=== PATIENT | male | born 1945 | race Hispanic/Latino ===

== ENCOUNTER 2019-01-18 01:50 | Emergency (ER) | payer OTHER, MEDICARE ==
[~2019-01-18] VITALS: Ht 185.4 cm; Wt 176.0 kg
[~2019-01-18 01:50] MED LIST: ALBUTEROL SULF8.5 GM INH; BENADRYL25 M1 PO; CEFDINIR300 MG PO; DITROPAN5 MG PO; FIBER LAXATIVE625 MG PO; LEVAQUIN500 MG PO; MIRALAX17 GM PO; MULTIVITAMIN; TYLENOL325 MG PO; Z.0.ALDACTONE25 MG PO; Z.0.CORDARONE200 MG PO; Z.0.COREG6.25 MG PO; Z.0.GLUCOPHAGE500 MG PO; Z.0.JANUVIA100 MG PO; Z.0.LASIX40 MG PO; Z.0.PROTONIX40 MG PO; [UNRECOGNIZED DRUG - OTHER] PO
[2019-01-18] MEDS ORDERED: SILVER NITRATE SWABS ONE (01:57)
[2019-01-18] MEDS ORDERED: SILVER NITRATE SWABS TOP ONE (02:00)
--- NOTE | 2019-01-18 02:10 | NUR ---
PTS R FOOT DRESSED WITH SURGICEL AND JEM WRAP
== END 2019-01-18 02:27 | disposition home or self-care (01) ==
LOC: ER 01:50
DX: I83.891 Varicose veins of right lower extremity with other complications (principal); I10 Essential (primary) hypertension; E11.9 Type 2 diabetes mellitus without complications; E66.01 Morbid (severe) obesity due to excess calories
CPT/HCPCS: 99283

== ENCOUNTER → 2019-02-18 | Outpatient (CLI) | payer MEDICARE, OTHER ==
--- NOTE | 2019-02-18 13:04 | Diagnostic Imaging Report ---
Exam: Left fifth digit, 3 views History: Pain status post trauma Comparison: None. Findings: No acute, displaced fracture or dislocation. Joint spaces are well-maintained. No soft tissue defect or radiopaque soft tissue foreign body. Impression: 1. No acute osseous abnormality. Signed by: Dr. Sy Anton M.D. on 02/18/2019 1:01 PM
--- NOTE | 2019-02-18 13:05 | Diagnostic Imaging Report ---
Exam: Nasal bones 3 views History: Pain, fall Comparison: None. Findings: No acute, displaced fracture. The paranasal sinuses are well aerated. Soft tissues unremarkable. Impression: No displaced nasal bone fracture. Signed by: Dr. Sy Anton M.D. on 02/18/2019 1:02 PM
== END ==
LOC: RAD 11:59
DX: M79.645 Pain in left finger(s) (principal); Z91.81 History of falling
CPT/HCPCS: 70160

== ENCOUNTER 2020-07-26 15:12 | Inpatient (IN) | payer MEDICARE, OTHER ==
[~2020-07-26] VITALS: Ht 182.9 cm; Wt 156.5 kg
[2020-07-26 18:26] LABS: BASOPHILS % 0.4 % (0.0-1.0); EOSINOPHILS # (AUTO) 0.2 (0.0-0.4); EOSINOPHILS % 1.4 % (0.0-6.0); HEMATOCRIT 31.4 % (38.2-49.6); HEMOGLOBIN 9.8 g/dL (14.0-18.0); LYMPHOCYTES # (AUTO) 0.7 (1.0-3.2); LYMPHOCYTES % 6.7 % (18.0-39.1); MEAN CORPUSCULAR HEMOGLOBIN 30.8 pg (28-32); MEAN CORPUSCULAR HGB CONC 31.2 g/dL (31-35); MEAN CORPUSCULAR VOLUME 98.7 fL (81-99); MONOCYTES # (AUTO) 1.2 (0.2-0.8); MONOCYTES % 10.6 % (4.4-11.3); NEUTROPHILS # (AUTO) 8.9 (2.1-6.9); NEUTROPHILS % 80.4 % (38.7-80.0); PLATELET COUNT 235 x10e3/uL (140-360); RED BLOOD COUNT 3.18 x10e6/uL (4.3-5.7); RED CELL DISTRIBUTION WIDTH 13.8 % (11.7-14.4)
[2020-07-26 18:42] LABS: ALBUMIN 2.6 g/dL (3.5-5.0); ALBUMIN/GLOBULIN RATIO 0.5 (0.8-2.0); ANION GAP 13.7 mmol/L (8-16); CALCIUM 8.6 mg/dL (8.4-10.2); CREATININE, SERUM 1.97 mg/dL (0.72-1.25); POTASSIUM 4.7 mmol/L (3.5-5.1)
[2020-07-26] MEDS ORDERED: VANCOMYCIN 1GM/NS 250 ML 250 ML IV STA (19:45)
[2020-07-26] MEDS ORDERED: VANCOMYCIN 1GM/NS 250 ML 250 ML IV ONE (19:45)
[2020-07-26] MEDS ORDERED: CEFEPIME 1GM/NS 0.9% 50 ML 50 ML IV STA (19:45)
[2020-07-26 21:30] VITALS: BP 130/77
[2020-07-26 22:00] VITALS: BP 130/77
[2020-07-26] MEDS ORDERED: SODIUM CHLORIDE 0.9% 250ML 250 ML ONE (22:16)
[2020-07-27] VITALS (8 sets, daily range): BP systolic 100–121; BP diastolic 55–73
[2020-07-27 06:20] LABS: BASOPHILS % 0.4 % (0.0-1.0); EOSINOPHILS # (AUTO) 0.5 (0.0-0.4); EOSINOPHILS % 5.5 % (0.0-6.0); HEMATOCRIT 30.5 % (38.2-49.6); HEMOGLOBIN 9.5 g/dL (14.0-18.0); LYMPHOCYTES # (AUTO) 0.6 (1.0-3.2); LYMPHOCYTES % 7.4 % (18.0-39.1); MEAN CORPUSCULAR HEMOGLOBIN 31.4 pg (28-32); MEAN CORPUSCULAR HGB CONC 31.1 g/dL (31-35); MEAN CORPUSCULAR VOLUME 100.7 fL (81-99); MONOCYTES % 12.5 % (4.4-11.3); NEUTROPHILS # (AUTO) 6.1 (2.1-6.9); NEUTROPHILS % 73.8 % (38.7-80.0); PLATELET COUNT 195 x10e3/uL (140-360); RED BLOOD COUNT 3.03 x10e6/uL (4.3-5.7); RED CELL DISTRIBUTION WIDTH 13.8 % (11.7-14.4)
[2020-07-27] MEDS ORDERED: CEFEPIME HCL 1 GM VIAL IV SCH (09:30)
[2020-07-27] MEDS ORDERED: POLYETHYLENE GLYCOL 3350 17 GM PACK PO PRN (09:30)
[2020-07-27] MEDS ORDERED: DIPHENHYDRAMINE HCL 25 MG CAP PO PRN (09:30)
[2020-07-27] MEDS ORDERED: DEXTROSE 50% SYRINGE 50 ML IV PRN (09:30)
[2020-07-27] MEDS ORDERED: ALBUTEROL SULFATE HFA 8GM INHALATION AEROSOL INH PRN (09:30)
[2020-07-27] MEDS ORDERED: ACETAMINOPHEN 325 MG TAB PO PRN (09:30)
[2020-07-27] MEDS: INSULIN REGULAR, HUMAN 100 UNIT/1 ML 3ML VIAL SQ SCH ×3 (11:30→20:30)
[2020-07-27] MEDS: CEFEPIME 1GM/NS 0.9% 50 ML 50 ML IV SCH ×2 (11:50→20:29)
[2020-07-27] MEDS ORDERED: CARVEDILOL 6.25 MG PO SCH (17:00)
[2020-07-27] MEDS: CARVEDILOL 3.125 MG TAB PO SCH (17:00)
[2020-07-27] MEDS: METFORMIN HCL 500 MG TAB PO SCH (17:06)
[2020-07-27] MEDS: OXYBUTYNIN CHLORIDE 5 MG TAB PO SCH (17:06)
[2020-07-27] MEDS: BALSAM PERU/CASTOR OIL 60 GM OINT...G. TP SCH (17:06)
[2020-07-27] MEDS: VANCOMYCIN 1GM/NS 250 ML 250 ML IV SCH (18:00)
[2020-07-28] VITALS (8 sets, daily range): BP systolic 107–128; BP diastolic 53–67
[2020-07-28] MEDS: INSULIN REGULAR, HUMAN 100 UNIT/1 ML 3ML VIAL SQ SCH ×4 (07:30→20:49)
[2020-07-28] MEDS: CALCIUM POLYCARBOPHIL 625 MG TAB PO SCH (09:00)
[2020-07-28] MEDS: CEFEPIME 1GM/NS 0.9% 50 ML 50 ML IV SCH ×2 (09:00→21:04)
[2020-07-28] MEDS ORDERED: CALCIUM POLYCARBOPHIL 625 MG TAB PO SCH (09:00)
[2020-07-28] MEDS: FUROSEMIDE 40 MG TAB PO SCH (09:01)
[2020-07-28] MEDS: OXYBUTYNIN CHLORIDE 5 MG TAB PO SCH ×2 (09:01→16:03)
[2020-07-28] MEDS: CARVEDILOL 3.125 MG TAB PO SCH ×2 (09:01→16:03)
[2020-07-28] MEDS: METFORMIN HCL 500 MG TAB PO SCH ×2 (09:01→16:03)
[2020-07-28] MEDS: PANTOPRAZOLE SOD 40 MG TABEC PO SCH (09:02)
[2020-07-28] MEDS: BALSAM PERU/CASTOR OIL 60 GM OINT...G. TP SCH (09:02)
[2020-07-28] MEDS: AMIODARONE HCL 200 MG TAB PO SCH (09:02)
[2020-07-28 16:15] LABS: BILIRUBIN,URINE NEGATIVE (NEGATIVE); CLARITY,URINE HAZY (CLEAR); COLOR,URINE YELLOW (YELLOW); KETONES,URINE NEGATIVE (NEGATIVE); LEUKOCYTE ESTERASE ,URINE MODERATE (NEGATIVE); NITRITE,URINE NEGATIVE (NEGATIVE); PROTEIN,URINE DIPSTICK NEGATIVE (NEGATIVE); URINE UROBILINOGEN 0.2 mg/dL (0.2 - 1)
[2020-07-28 16:21] LABS: BACTERIA,URINE MODERATE /HPF; EPITHELIAL CELLS,URINE RARE /LPF; RBC,URINE 0-5 /HPF (0-5); WBC,URINE (MAN) 21-50 /HPF (0-5)
[2020-07-28] MEDS: VANCOMYCIN 1GM/NS 250 ML 250 ML IV SCH (17:18)
[2020-07-29] VITALS (8 sets, daily range): BP systolic 109–129; BP diastolic 63–79
[2020-07-29] MEDS: BALSAM PERU/CASTOR OIL 60 GM OINT...G. TP SCH (05:42)
[2020-07-29] MEDS: INSULIN REGULAR, HUMAN 100 UNIT/1 ML 3ML VIAL SQ SCH ×4 (07:30→21:00)
[2020-07-29] MEDS: OXYBUTYNIN CHLORIDE 5 MG TAB PO SCH ×2 (08:43→16:06)
[2020-07-29] MEDS: CALCIUM POLYCARBOPHIL 625 MG TAB PO SCH (08:43)
[2020-07-29] MEDS: CARVEDILOL 3.125 MG TAB PO SCH ×2 (08:43→16:06)
[2020-07-29] MEDS: AMIODARONE HCL 200 MG TAB PO SCH (08:43)
[2020-07-29] MEDS: FUROSEMIDE 40 MG TAB PO SCH (08:44)
[2020-07-29] MEDS: METFORMIN HCL 500 MG TAB PO SCH ×2 (08:44→16:06)
[2020-07-29] MEDS: CEFEPIME 1GM/NS 0.9% 50 ML 50 ML IV SCH ×2 (08:44→20:30)
[2020-07-29] MEDS: PANTOPRAZOLE SOD 40 MG TABEC PO SCH (08:44)
[2020-07-29] MEDS: VANCOMYCIN 1GM/NS 250 ML 250 ML IV SCH (17:51)
[2020-07-30 01:35] VITALS: BP 100/83
[2020-07-30 05:27] VITALS: BP 134/68
[2020-07-30] MEDS: INSULIN REGULAR, HUMAN 100 UNIT/1 ML 3ML VIAL SQ SCH ×2 (07:30→11:30)
[2020-07-30 08:50] VITALS: BP 123/59
[2020-07-30 09:04] VITALS: BP 123/59
[2020-07-30] MEDS: METFORMIN HCL 500 MG TAB PO SCH (09:07)
[2020-07-30] MEDS: FUROSEMIDE 40 MG TAB PO SCH (09:08)
[2020-07-30] MEDS: CARVEDILOL 3.125 MG TAB PO SCH (09:08)
[2020-07-30] MEDS: OXYBUTYNIN CHLORIDE 5 MG TAB PO SCH (09:08)
[2020-07-30] MEDS: AMIODARONE HCL 200 MG TAB PO SCH (09:08)
[2020-07-30] MEDS: CEFEPIME 1GM/NS 0.9% 50 ML 50 ML IV SCH (09:08)
[2020-07-30] MEDS: CALCIUM POLYCARBOPHIL 625 MG TAB PO SCH (09:08)
[2020-07-30] MEDS: PANTOPRAZOLE SOD 40 MG TABEC PO SCH (09:08)
[2020-07-30] MEDS: BALSAM PERU/CASTOR OIL 60 GM OINT...G. TP SCH (09:09)
[2020-07-30 13:17] VITALS: BP 111/62
[2020-07-30 16:38] VITALS: BP 148/79
== END 2020-07-30 17:00 | DRG 602 ==
LOC: ER 16:55 → ERHOLD 20:42 → MED/SURG3 21:32 → OBSVTOIN 07-28 15:02
DX: L03.115 Cellulitis of right lower limb (principal); N18.6 End stage renal disease; J96.10 Chronic respiratory failure, unspecified whether with hypoxia or hypercapnia; Z68.42 Body mass index [BMI] 45.0-49.9, adult; I13.2 Hypertensive heart and chronic kidney disease with heart failure and with stage 5 chronic kidney disease, or end stage renal disease; I50.22 Chronic systolic (congestive) heart failure; Z20.828 Contact with and (suspected) exposure to other viral communicable diseases; L03.116 Cellulitis of left lower limb; E11.9 Type 2 diabetes mellitus without complications; E66.01 Morbid (severe) obesity due to excess calories; Z99.2 Dependence on renal dialysis; E11.22 Type 2 diabetes mellitus with diabetic chronic kidney disease
CPT/HCPCS: 36415; 71045; 80053; 80202; 81001; 82948; 83605; 85025; 87040; 87086; 93005; 93970; 96372; 97139; 99251; 99284; G0378; J0692; J1817; J3370; J7050; U0002

== ENCOUNTER 2022-12-29 13:28 | Outpatient (RCR) | payer MEDICARE, OTHER ==
[~2022-12-29 13:28] MED LIST changes: +LIDOCAINE VISC 2% SOLN 15 ML UDC ONE; +MINERAL OIL/PETROLAT/GLYCERI 6OZ BTL ONE; +TRIAMCINOLONE ACET 0.1% CREAM 15 GM TUBE ONE
== END 2022-12-31 ==
LOC: WCC 13:28
PROVIDERS: ATTEND Family Medicine Adult Medicine
DX: I87.312 Chronic venous hypertension (idiopathic) with ulcer of left lower extremity (principal); L97.821 Non-pressure chronic ulcer of other part of left lower leg limited to breakdown of skin; Z16.12 Extended spectrum beta lactamase (ESBL) resistance; B95.7 Other staphylococcus as the cause of diseases classified elsewhere; B96.89 Other specified bacterial agents as the cause of diseases classified elsewhere; R60.0 Localized edema

== ENCOUNTER 2023-01-02 07:34 | Outpatient (RCR) | payer MEDICARE, OTHER ==
[~2023-01-02 07:34] MED LIST changes: -LIDOCAINE VISC 2% SOLN 15 ML UDC ONE; -MINERAL OIL/PETROLAT/GLYCERI 6OZ BTL ONE; -TRIAMCINOLONE ACET 0.1% CREAM 15 GM TUBE ONE
[2023-01-02] MEDS ORDERED: LIDOCAINE VISC 2% SOLN 15 ML UDC ONE (13:22)
[2023-01-02] MEDS ORDERED: MINERAL OIL/PETROLAT/GLYCERI 6OZ BTL ONE (13:22)
== END 2023-01-31 ==
LOC: WCC 07:34
PROVIDERS: ATTEND Family Medicine Adult Medicine
DX: I87.312 Chronic venous hypertension (idiopathic) with ulcer of left lower extremity (principal); L97.821 Non-pressure chronic ulcer of other part of left lower leg limited to breakdown of skin; I89.0 Lymphedema, not elsewhere classified; R60.0 Localized edema; B95.7 Other staphylococcus as the cause of diseases classified elsewhere; Z16.12 Extended spectrum beta lactamase (ESBL) resistance; B96.89 Other specified bacterial agents as the cause of diseases classified elsewhere

== ENCOUNTER 2024-04-06 21:38 | Inpatient (IN) | payer MEDICARE, OTHER ==
[~2024-04-06] VITALS: Ht 180.3 cm; Wt 151.5 kg
[2024-04-06 22:42] LABS: BASOPHILS % 0.3 % (0.0-1.0); EOSINOPHILS # (AUTO) 0.5 (0.0-0.4); EOSINOPHILS % 5.2 % (0.0-6.0); HEMATOCRIT 26.8 % (38.2-49.6); HEMOGLOBIN 8.5 g/dL (14.0-18.0); LYMPHOCYTES # (AUTO) 0.7 (1.0-3.2); LYMPHOCYTES % 7.4 % (18.0-39.1); MEAN CORPUSCULAR HEMOGLOBIN 31.8 pg (28-32); MEAN CORPUSCULAR HGB CONC 31.7 g/dL (31-35); MEAN CORPUSCULAR VOLUME 100.4 fL (81-99); MONOCYTES % 10.4 % (4.4-11.3); NEUTROPHILS # (AUTO) 7.3 (2.1-6.9); NEUTROPHILS % 76.4 % (38.7-80.0); PLATELET COUNT 173 x10e3/uL (140-360); RED BLOOD COUNT 2.67 x10e6/uL (4.3-5.7); RED CELL DISTRIBUTION WIDTH 14.2 % (11.7-14.4); WHITE BLOOD COUNT 9.59 x10e3/uL (4.8-10.8)
[2024-04-06] MEDS: SODIUM CHLORIDE 0.9% 1000ML 1,000 ML IV STA (22:53)
[2024-04-06 23:00] LABS: ALBUMIN/GLOBULIN RATIO 0.8 (0.8-2.0); ANION GAP 15.1 mmol/L (8-16); BILIRUBIN,TOTAL 0.5 mg/dL (0.2-1.2); CALCIUM 8.7 mg/dL (8.4-10.2); CREATININE, SERUM 2.46 mg/dL (0.72-1.25); POTASSIUM 4.1 mmol/L (3.5-5.1)
[2024-04-06 23:06] LABS: TROPONIN I 0.019 ng/mL (0-0.300)
[2024-04-07] VITALS (16 sets, daily range): BP systolic 97–123; BP diastolic 53–69; PULSE 57–135; RESP 16–20; TEMP 97.4–98.9; O2SAT 96–99
[2024-04-07] MEDS ORDERED: SODIUM CHLORIDE FLUSH 10 ML SYR INJ PRN (00:45)
[2024-04-07] MEDS: FUROSEMIDE INJ 10 MG/ML 4 ML VIAL IV SCH ×2 (02:34→12:00)
[2024-04-07] MEDS ORDERED: INFLUENZA VIRUS VAC SPLIT INJ 0.5 ML SYR IM SCH (03:33)
[2024-04-07] MEDS ORDERED: GLIMEPIRIDE1 MG PO (03:42)
[2024-04-07] MEDS ORDERED: ALLOPURINOL100 MG PO (03:44)
[2024-04-07] MEDS ORDERED: LIPITOR10 MG PO (03:47)
[2024-04-07] MEDS ORDERED: FERROUS SULFAT325 MG PO (03:48)
[2024-04-07] MEDS ORDERED: ZESTRIL2.5 MG PO (03:53)
[2024-04-07] MEDS ORDERED: METOPROLOL TARTRATE INJ 1 MG/ML VIAL IV STA (05:41)
[2024-04-07] MEDS ORDERED: DILTIAZEM HCL 5 MG/ML 5 ML VIAL IV STA (05:41)
[2024-04-07] MEDS ORDERED: DIGOXIN INJ 0.25 MG/ML 2 ML AMP ONE (05:51)
[2024-04-07] MEDS ORDERED: METOPROLOL TARTRATE INJ 1 MG/ML VIAL ONE (05:52)
[2024-04-07] MEDS: AMIODARONE HCL 200 MG TAB PO SCH ×2 (06:00→12:01)
[2024-04-07] MEDS: SODIUM CHLORIDE 0.9% 500ML 500 ML IV STA (06:08)
[2024-04-07] MEDS: METOPROLOL TARTRATE INJ 1 MG/ML VIAL IV ONE (06:08)
[2024-04-07] MEDS: DIGOXIN INJ 0.25 MG/ML 2 ML AMP IV STA (06:10)
[2024-04-07] MEDS: AMIODARONE HCL 150 MG/100 ML BAG IV ONE (06:11)
[2024-04-07] MEDS: CARVEDILOL 3.125 MG TAB PO ONE (06:11)
[2024-04-07] MEDS: DIGOXIN INJ 0.25 MG/ML 2 ML AMP IV ONE (06:20)
[2024-04-07 06:38] LABS: TROPONIN I 0.017 ng/mL (0-0.300)
[2024-04-07] MEDS ORDERED: DEXTROSE 50% SYRINGE 50 ML IV PRN (09:00)
[2024-04-07] MEDS ORDERED: AMIODARONE HCL 200 MG TAB PO SCH (09:00)
[2024-04-07] MEDS: METOPROLOL TARTRATE 50 MG TAB PO SCH (12:01)
[2024-04-07] MEDS: INSULIN REGULAR, HUMAN 100 UNIT/1 ML SQ SCH (12:12)
[2024-04-07] MEDS ORDERED: CARVEDILOL 3.125 MG TAB PO SCH (17:00)
[2024-04-07] MEDS: APIXABAN 5 MG TABLET PO SCH (17:32)
[2024-04-07 17:44] LABS: TROPONIN I 0.047 ng/mL (0-0.300)
[2024-04-07] MEDS ORDERED: HYDRALAZINE HCL 20 MG/ML VIAL IV PRN (20:30)
[2024-04-07] MEDS ORDERED: FAMOTIDINE 20 MG TAB PO PRN (20:30)
[2024-04-07] MEDS ORDERED: MELATONIN 5 MG TABLET PO PRN (20:30)
[2024-04-07] MEDS ORDERED: ACETAMINOPHEN 325 MG TAB PO PRN (20:30)
[2024-04-08] VITALS (11 sets, daily range): BP systolic 99–133; BP diastolic 52–66; PULSE 54–90; RESP 17–20; TEMP 97.3–98.3; O2SAT 95–100
[2024-04-08 06:02] LABS: BASOPHILS % 0.1 % (0.0-1.0); EOSINOPHILS # (AUTO) 0.6 (0.0-0.4); EOSINOPHILS % 6.5 % (0.0-6.0); HEMATOCRIT 28.3 % (38.2-49.6); HEMOGLOBIN 8.9 g/dL (14.0-18.0); LYMPHOCYTES # (AUTO) 0.9 (1.0-3.2); LYMPHOCYTES % 8.9 % (18.0-39.1); MEAN CORPUSCULAR HEMOGLOBIN 31.9 pg (28-32); MEAN CORPUSCULAR HGB CONC 31.4 g/dL (31-35); MEAN CORPUSCULAR VOLUME 101.4 fL (81-99); MONOCYTES # (AUTO) 1.2 (0.2-0.8); MONOCYTES % 12.2 % (4.4-11.3); NEUTROPHILS # (AUTO) 6.9 (2.1-6.9); NEUTROPHILS % 71.8 % (38.7-80.0); PLATELET COUNT 185 x10e3/uL (140-360); RED BLOOD COUNT 2.79 x10e6/uL (4.3-5.7); RED CELL DISTRIBUTION WIDTH 14.1 % (11.7-14.4); WHITE BLOOD COUNT 9.61 x10e3/uL (4.8-10.8)
[2024-04-08 06:40] LABS: ALBUMIN 2.6 g/dL (3.5-5.0); ALBUMIN/GLOBULIN RATIO 0.7 (0.8-2.0); ANION GAP 14.1 mmol/L (8-16); BILIRUBIN,TOTAL 0.5 mg/dL (0.2-1.2); CALCIUM 8.4 mg/dL (8.4-10.2); CREATININE, SERUM 2.44 mg/dL (0.72-1.25); POTASSIUM 4.1 mmol/L (3.5-5.1); TOTAL PROTEIN 6.2 g/dL (6.5-8.1)
[2024-04-08 09:56] LABS: FERRITIN 85.12 ng/mL (21.81-274.66)
[2024-04-08] MEDS ORDERED: OXYBUTYNIN CHLORIDE 5 MG TAB PO PRN (12:15)
[2024-04-08] MEDS ORDERED: POLYETHYLENE GLYCOL 3350 17 GM PACK PO SCH (12:15)
[2024-04-08 15:06] LABS: ANION GAP 14.2 mmol/L (8-16); CALCIUM 8.4 mg/dL (8.4-10.2); CREATININE, SERUM 2.31 mg/dL (0.72-1.25); POTASSIUM 4.2 mmol/L (3.5-5.1)
[2024-04-08] MEDS: ALLOPURINOL 100 MG TAB PO SCH (17:27)
[2024-04-08] MEDS: BALSAM PERU/CASTOR OIL 60 GM OINT...G. TP SCH (17:28)
[2024-04-09] VITALS (13 sets, daily range): BP systolic 108–125; BP diastolic 51–80; PULSE 57–132; RESP 18–20; TEMP 97.5–98.2; O2SAT 95–99
[2024-04-09 06:09] LABS: BASOPHILS % 0.2 % (0.0-1.0); EOSINOPHILS # (AUTO) 0.8 (0.0-0.4); EOSINOPHILS % 7.6 % (0.0-6.0); HEMOGLOBIN 9.7 g/dL (14.0-18.0); LYMPHOCYTES % 8.6 % (18.0-39.1); MEAN CORPUSCULAR HEMOGLOBIN 31.4 pg (28-32); MEAN CORPUSCULAR HGB CONC 31.3 g/dL (31-35); MEAN CORPUSCULAR VOLUME 100.3 fL (81-99); MONOCYTES # (AUTO) 1.1 (0.2-0.8); MONOCYTES % 9.7 % (4.4-11.3); NEUTROPHILS # (AUTO) 8.1 (2.1-6.9); NEUTROPHILS % 73.4 % (38.7-80.0); PLATELET COUNT 219 x10e3/uL (140-360); RED BLOOD COUNT 3.09 x10e6/uL (4.3-5.7)
[2024-04-09 06:41] LABS: ALBUMIN 2.9 g/dL (3.5-5.0); ALBUMIN/GLOBULIN RATIO 0.7 (0.8-2.0); ANION GAP 16.5 mmol/L (8-16); BILIRUBIN,TOTAL 0.6 mg/dL (0.2-1.2); CALCIUM 8.8 mg/dL (8.4-10.2); CREATININE, SERUM 2.25 mg/dL (0.72-1.25); POTASSIUM 4.5 mmol/L (3.5-5.1); TOTAL PROTEIN 7.2 g/dL (6.5-8.1)
[2024-04-09 07:20] LABS: MAGNESIUM 1.8 MG/DL (1.3-2.1); PHOSPHORUS 3.7 MG/DL (2.3-4.7)
[2024-04-09] MEDS: PANTOPRAZOLE SOD 40 MG TABEC PO SCH (08:40)
[2024-04-09] MEDS: AMIODARONE HCL 100 ML IV ONE (20:01)
[2024-04-09] MEDS: DILTIAZEM HCL VIAL 0 ML ONE (20:01)
[2024-04-10] VITALS: BP 116/58; PULSE 56; RESP 20; TEMP 97.7; O2SAT 100
[2024-04-10 04:00] VITALS: BP 119/72; PULSE 65; RESP 21; TEMP 98.1; O2SAT 98
[2024-04-10 05:40] LABS: BASOPHILS % 0.1 % (0.0-1.0); EOSINOPHILS # (AUTO) 0.8 (0.0-0.4); EOSINOPHILS % 7.5 % (0.0-6.0); HEMATOCRIT 28.3 % (38.2-49.6); HEMOGLOBIN 9.1 g/dL (14.0-18.0); LYMPHOCYTES % 9.1 % (18.0-39.1); MEAN CORPUSCULAR HGB CONC 32.2 g/dL (31-35); MEAN CORPUSCULAR VOLUME 99.6 fL (81-99); MONOCYTES # (AUTO) 1.1 (0.2-0.8); MONOCYTES % 9.5 % (4.4-11.3); NEUTROPHILS # (AUTO) 8.1 (2.1-6.9); NEUTROPHILS % 73.3 % (38.7-80.0); PLATELET COUNT 201 x10e3/uL (140-360); RED BLOOD COUNT 2.84 x10e6/uL (4.3-5.7); WHITE BLOOD COUNT 11.08 x10e3/uL (4.8-10.8)
[2024-04-10 06:25] LABS: ALBUMIN 2.6 g/dL (3.5-5.0); ALBUMIN/GLOBULIN RATIO 0.7 (0.8-2.0); ANION GAP 14.4 mmol/L (8-16); BILIRUBIN,TOTAL 0.5 mg/dL (0.2-1.2); CALCIUM 8.8 mg/dL (8.4-10.2); CREATININE, SERUM 2.24 mg/dL (0.72-1.25); POTASSIUM 4.4 mmol/L (3.5-5.1); TOTAL PROTEIN 6.3 g/dL (6.5-8.1)
[2024-04-10 07:33] VITALS: PULSE 65; RESP 20; O2SAT 96
[2024-04-10 08:16] VITALS: BP 106/67; PULSE 82; RESP 22; TEMP 98; O2SAT 98
[2024-04-10] MEDS: AMIODARONE HCL 200 MG TAB PO SCH (09:17)
[2024-04-10] MEDS ORDERED: ELIQUIS5 MG PO (09:29)
[2024-04-10] MEDS ORDERED: AMIODARONE HCL200 MG PO (09:29)
[2024-04-10] MEDS ORDERED: METOPROLOL TART50 MG PO (09:29)
[2024-04-10 11:39] VITALS: BP 116/73; PULSE 80; RESP 20; TEMP 97.9; O2SAT 100
[2024-04-10] MEDS ORDERED: CEFDINIR300 MG PO (20:53)
== END 2024-04-10 15:39 | disposition home health service (06) | DRG 291 ==
LOC: ER 21:43 → ERHOLD 04-07 00:39 → MED/SURG2 04-07 02:37 → OBSVTOIN 04-08 09:16
PROVIDERS: ADMIT Family Medicine Adult Medicine; ATTEND Family Medicine Adult Medicine
DX: I13.0 Hypertensive heart and chronic kidney disease with heart failure and stage 1 through stage 4 chronic kidney disease, or unspecified chronic kidney disease (principal); I50.33 Acute on chronic diastolic (congestive) heart failure; N17.9 Acute kidney failure, unspecified; E66.2 Morbid (severe) obesity with alveolar hypoventilation; Z68.42 Body mass index [BMI] 45.0-49.9, adult; L97.929 Non-pressure chronic ulcer of unspecified part of left lower leg with unspecified severity; I50.812 Chronic right heart failure; I48.91 Unspecified atrial fibrillation; Z79.01 Long term (current) use of anticoagulants; E11.22 Type 2 diabetes mellitus with diabetic chronic kidney disease; N18.30 Chronic kidney disease, stage 3 unspecified; I27.29 Other secondary pulmonary hypertension; I95.9 Hypotension, unspecified; D50.9 Iron deficiency anemia, unspecified; I87.2 Venous insufficiency (chronic) (peripheral); E11.40 Type 2 diabetes mellitus with diabetic neuropathy, unspecified; Z79.84 Long term (current) use of oral hypoglycemic drugs; R53.1 Weakness; I89.0 Lymphedema, not elsewhere classified; Z11.52 Encounter for screening for COVID-19; Z43.0 Encounter for attention to tracheostomy; Z71.81 Spiritual or religious counseling; Z79.899 Other long term (current) drug therapy
CPT/HCPCS: 36415; 70450; 71045; 80048; 80053; 80061; 82550; 82607; 82728; 82746; 82948; 83540; 83735; 83880; 84100; 84439; 84443; 84466; 84481; 84484; 85025; 87400; 93005; 93306; 94799; 99252; 99284; G0378; J1160; J1940; J7030; J7040; U0002

== ENCOUNTER 2024-04-10 17:45 | Emergency (ER) | payer MEDICARE, OTHER ==
[~2024-04-10] VITALS: Ht 180.3 cm; Wt 151.5 kg
[~2024-04-10 17:45] MED LIST changes: +ALLOPURINOL100 MG PO; +AMIODARONE HCL200 MG PO; +ELIQUIS5 MG PO; +FERROUS SULFAT325 MG PO; +GLIMEPIRIDE1 MG PO; +LIPITOR10 MG PO; +METOPROLOL TART50 MG PO; +ZESTRIL2.5 MG PO
[2024-04-10 18:32] VITALS: PULSE 83; RESP 16; TEMP 100
[2024-04-10 18:53] LABS: BASOPHILS % 0.2 % (0.0-1.0); EOSINOPHILS # (AUTO) 0.5 (0.0-0.4); EOSINOPHILS % 3.8 % (0.0-6.0); HEMOGLOBIN 9.8 g/dL (14.0-18.0); LYMPHOCYTES # (AUTO) 0.7 (1.0-3.2); LYMPHOCYTES % 5.3 % (18.0-39.1); MEAN CORPUSCULAR HEMOGLOBIN 32.1 pg (28-32); MEAN CORPUSCULAR HGB CONC 32.7 g/dL (31-35); MEAN CORPUSCULAR VOLUME 98.4 fL (81-99); MONOCYTES # (AUTO) 1.3 (0.2-0.8); MONOCYTES % 9.9 % (4.4-11.3); NEUTROPHILS # (AUTO) 10.7 (2.1-6.9); NEUTROPHILS % 80.2 % (38.7-80.0); PLATELET COUNT 232 x10e3/uL (140-360); RED BLOOD COUNT 3.05 x10e6/uL (4.3-5.7); RED CELL DISTRIBUTION WIDTH 14.1 % (11.7-14.4); WHITE BLOOD COUNT 13.29 x10e3/uL (4.8-10.8)
[2024-04-10 19:18] LABS: ALBUMIN/GLOBULIN RATIO 0.6 (0.8-2.0); ANION GAP 16.6 mmol/L (8-16); BILIRUBIN,TOTAL 0.4 mg/dL (0.2-1.2); CREATININE, SERUM 2.61 mg/dL (0.72-1.25); POTASSIUM 4.6 mmol/L (3.5-5.1); TOTAL PROTEIN 7.8 g/dL (6.5-8.1)
[2024-04-10] MEDS: ACETAMINOPHEN 325 MG TAB PO ONE (20:09)
[2024-04-10 20:33] LABS: BILIRUBIN,URINE NEGATIVE (NEGATIVE); CLARITY,URINE SL CLOUDY (CLEAR); COLOR,URINE YELLOW (YELLOW); GLUCOSE, URINE NEGATIVE (NEGATIVE); KETONES,URINE NEGATIVE (NEGATIVE); LEUKOCYTE ESTERASE ,URINE SMALL (NEGATIVE); NITRITE,URINE POSITIVE (NEGATIVE); PH,URINE 5.5 (5 - 7); PROTEIN,URINE DIPSTICK NEGATIVE (NEGATIVE); URINE UROBILINOGEN 0.2 mg/dL (0.2 - 1)
[2024-04-10 20:44] LABS: BACTERIA,URINE MANY /HPF
[2024-04-10 20:50] VITALS: BP 113/60; PULSE 81; RESP 16; TEMP 98.2; O2SAT 98
[2024-04-10] MEDS ORDERED: CEFDINIR300 MG PO (20:53)
[2024-04-10] MEDS ORDERED: CEFDINIR 300 MG CAP ONE (20:59)
[2024-04-10] MEDS: CEFDINIR 300 MG CAP PO ONE (20:59)
== END 2024-04-10 21:00 | disposition home or self-care (01) ==
LOC: ER 18:44
DX: R50.9 Fever, unspecified (principal); U07.1 COVID-19; R51.9 Headache, unspecified; N39.0 Urinary tract infection, site not specified; N28.9 Disorder of kidney and ureter, unspecified; I10 Essential (primary) hypertension; I48.91 Unspecified atrial fibrillation; K21.9 Gastro-esophageal reflux disease without esophagitis
CPT/HCPCS: 36415; 70450; 80053; 81001; 85025; 87086; 87186; 99284; U0002

== ENCOUNTER 2025-03-11 20:30 | Inpatient (IN) | payer MEDICARE, OTHER ==
[~2025-03-11] VITALS: Ht 182.9 cm; Wt 145.1 kg
[2025-03-11 21:08] VITALS: TEMP 98
[2025-03-11 21:46] VITALS: PULSE 59; RESP 20
[2025-03-11 22:35] LABS: BASOPHILS % 0.4 % (0.0-1.0); EOSINOPHILS % 7.6 % (0.0-6.0); LYMPHOCYTES % 7.6 % (18.0-39.1); MONOCYTES % 10.0 % (4.4-11.3); NEUTROPHILS % 74.0 % (38.7-80.0); RED CELL DISTRIBUTION WIDTH 14.9 % (11.7-14.4)
[2025-03-11] MEDS: Vancomycin IV 1 GM in SODIUM CHLORIDE 0.9% 250ML 250 ML IV SCH (22:45)
[2025-03-11 23:02] LABS: EST GLOMERULAR FILTRATION RATE 38.0 ML/MIN (>=60)
[2025-03-11] MEDS ORDERED: ONDANSETRON HCL INJ 2MG/ML 2ML 2 MG/ML VIAL IV PRN (23:30)
[2025-03-11] MEDS ORDERED: ACETAMINOPHEN 325 MG TAB PO PRN (23:30)
[2025-03-11] MEDS ORDERED: SODIUM CHLORIDE FLUSH 10 ML SYR INJ PRN (23:30)
[2025-03-12] VITALS (11 sets, daily range): BP systolic 108–132; BP diastolic 49–81; PULSE 62–75; RESP 16–22; TEMP 97.1–98.9; O2SAT 94–99
[2025-03-12] MEDS ORDERED: SODIUM CHLORIDE 0.9% 100 ML ONE (05:11)
[2025-03-12 06:27] LABS: EST GLOMERULAR FILTRATION RATE 41 ML/MIN (>=60)
[2025-03-12 06:31] LABS: BASOPHILS % 0.2 % (0.0-1.0); EOSINOPHILS % 7.7 % (0.0-6.0); LYMPHOCYTES % 5.7 % (18.0-39.1); MONOCYTES % 10.4 % (4.4-11.3); NEUTROPHILS % 75.7 % (38.7-80.0); RED CELL DISTRIBUTION WIDTH 14.9 % (11.7-14.4)
[2025-03-12] MEDS: METOPROLOL TARTRATE 50 MG TAB PO SCH (09:00)
[2025-03-12] MEDS: APIXABAN 5 MG TABLET PO SCH (09:45)
[2025-03-12] MEDS: FERROUS SULFATE 325 MG TAB PO SCH (09:45)
[2025-03-12] MEDS: AMIODARONE HCL 200 MG TAB PO SCH (09:45)
[2025-03-12] MEDS: ALLOPURINOL 100 MG TAB PO SCH (09:46)
[2025-03-12] MEDS: FUROSEMIDE 40 MG TAB PO SCH (09:46)
[2025-03-12] MEDS ORDERED: SODIUM CHLORIDE 0.9% 250ML 0 ML ONE (11:58)
[2025-03-12] MEDS ORDERED: AMOX TR-K CLV1 EAC2 PO (18:05)
[2025-03-12] MEDS ORDERED: DOXYCYCLINE HY100 MG PO (18:05)
== END 2025-03-12 21:15 | disposition home or self-care (01) | DRG 603 ==
LOC: ER 21:55 → ERHOLD 23:27 → MED/SURG3 03-12
PROVIDERS: ADMIT Family Medicine Adult Medicine; ATTEND Family Medicine Adult Medicine
DX: L03.116 Cellulitis of left lower limb (principal); I13.0 Hypertensive heart and chronic kidney disease with heart failure and stage 1 through stage 4 chronic kidney disease, or unspecified chronic kidney disease; I50.22 Chronic systolic (congestive) heart failure; Z68.42 Body mass index [BMI] 45.0-49.9, adult; I48.20 Chronic atrial fibrillation, unspecified; Z93.0 Tracheostomy status; E11.22 Type 2 diabetes mellitus with diabetic chronic kidney disease; E11.42 Type 2 diabetes mellitus with diabetic polyneuropathy; N18.30 Chronic kidney disease, stage 3 unspecified; K21.9 Gastro-esophageal reflux disease without esophagitis; E66.01 Morbid (severe) obesity due to excess calories; M10.9 Gout, unspecified; I87.8 Other specified disorders of veins; Z79.01 Long term (current) use of anticoagulants; Z79.84 Long term (current) use of oral hypoglycemic drugs
CPT/HCPCS: 36415; 80053; 82948; 85025; 87040; 94799; 99284; J2543; J7050